=== PATIENT | female | born 1985 | race Caucasian/White ===

== ENCOUNTER 2018-08-27 08:30 | Emergency (ER) | payer MEDICAID ==
[2018-08-27] MEDS: IBUPROFEN 800 MG TAB PO (09:06)
[2018-08-27 09:09] LABS: URINE BLOOD (Dip) POC 2+ (NEGATIVE); URINE GLUCOSE (Dip) POC Negative (NEGATIVE); URINE KETONES (Dip) POC Negative (NEGATIVE); URINE LEUKOCYTE EST (Dip) POC Negative (NEGATIVE); URINE NITRITE (Dip) POC Negative (NEGATIVE); URINE TOTAL PROTEIN POC Negative (NEGATIVE)
== END 2018-08-27 09:22 | disposition home or self-care (01) ==
LOC: FTE 08:30
DX: M54.5 Low back pain (principal); R10.2 Pelvic and perineal pain; R10.30 Lower abdominal pain, unspecified
CPT/HCPCS: 81003; 81025; 99283